=== PATIENT | male | born 1995 | race Asian ===

== ENCOUNTER 2025-02-02 10:13 | Outpatient (CLI) | payer BC, SELFPAY ==
--- NOTE | ~2025-02-02 | XR_ITS ---
Clinical Indication: Pneumonia PA and lateral views of the chest: Comparison: None Findings: The lungs are clear, without evidence of focal consolidation or pleural effusion. Cardiome diastinal silhouette is within normal limits. Bones and soft tissues are unremarkable. Impression: Normal chest. Reviewed, dictated and finalized at location . Impression: Normal chest.
--- OUTSIDE RECORDS SUMMARY | 2025-02-02 10:32 | XMS_ITS | Clinical Summary ---
Author Organization [facility] Care Team Providers Care Tool Clerk Name Role Phone Unavailable Primary Care Provider Unavailabl e Social History Tobacco Use Types Packs/Day Years Used Date Smoking Tobacco: Never Assessed Sex and Gender Information Value Date Recorded Sex Assigned at Not on file Legal Sex Male 10:42 AM [employer] Gender Identity Not on file Sexual Orientation Not on file Plan of Treatment Health Maintenance Due Date Last Done Comments Hepatitis C Virus (HCV) Screening 1997 Human Papillomavirus (HPV) Immunization (1 - Male 3-dose series) 2012 Influenza Immunization (#1) 2024 07/22/2013 SARS-COV-2 Immunization (3 - season) 2024 12/10/2020, 11/12/2020 Respiratory Syncytial Virus (RSV) Immunization (Adult) (1 - 1-dose 75+ series) 2072 Hepatitis B Immunization Completed 998, 1997, 1997 DTaP/Tdap/Td Immunization Discontinued 2010, 05/04/2002, 11/01/1998, Additional history exists Meningococcal Immunization (ACWY) Aged Out 04/04/2011 No longer eligible based on patient's age to complete this topic TdaP Immunization Completed 04/04/2011 Pneumococcal Immunization Combined Aged Out No longer eligible based on patient's age to complete this topic Rotavirus Immunization Aged Out No lo nger eligible based on patient's age to complete this topic
== END 2025-02-02 10:14 | disposition home or self-care (01) ==
PROVIDERS: PCP Family Medicine
DX: R09.3 Abnormal sputum (principal); R05.9 Cough, unspecified; R52 Pain, unspecified
CPT/HCPCS: 71046